=== PATIENT | male | born 1985 | race African-American/Black ===

== ENCOUNTER 2024-05-15 02:40 | Emergency (ER) | payer BC ==
[~2024-05-15] VITALS: Ht 195.6 cm; Wt 129.0 kg
[2024-05-15 02:55] VITALS: O2SAT 100
[2024-05-15 03:00] VITALS: BP 154/110; PULSE 87; TEMP 36.8; O2SAT 100
[2024-05-15] MEDS ORDERED: KETOROLAC 15MG/ML VIAL IM ONE (04:15)
[2024-05-15] MEDS ORDERED: NAPR-1176 MT (05:11)
[2024-05-15] MEDS ORDERED: LIDO700A15 TP (05:11)
[2024-05-15 05:12] VITALS: RESP 16
[2024-05-15] MEDS: KETOROLAC 15MG/ML VIAL IM NR (05:12)
== END 2024-05-15 05:39 | disposition home or self-care (01) ==
LOC: ER 03:20
DX: M79.671 Pain in right foot (principal); Z79.899 Other long term (current) drug therapy
CPT/HCPCS: 99283; 73630; J1885